=== PATIENT | female | born 1955 | race Caucasian/White ===

== ENCOUNTER 2024-08-02 07:15 | Day surgery (SDC) | payer MEDICARE ==
[~2024-08-02] VITALS: Ht 152.4 cm; Wt 64.4 kg
[~2024-08-02 07:15] MED LIST: B12 FAST DIS5000 MCG; CALCIUM PO; COQ10200 MG PO; COZAAR100 MG PO; FAMOTIDINE20 M1 PO; IBUPROFEN200 MG PO; LIPITOR20 M1 PO; VITAMIN D31000 UNI1 PO; [UNRECOGNIZED DRUG - OTHER] PO
[2024-08-02] MEDS ORDERED: FAMOTIDINE 10MG/ML 2ML SDV IV ONE (07:17)
[2024-08-02] MEDS ORDERED: LACTATED RINGER'S 1,000 ML IV ONE (07:18)
[2024-08-02 09:45] VITALS: BP 142/81
[2024-08-02] MEDS ORDERED: GLYCOPYRROLATE 0.2 MG/ML IV ONE (11:04)
[2024-08-02] MEDS ORDERED: PROPOFOL 200 MG/20 ML VIAL IV ONE (11:04)
[2024-08-02] MEDS ORDERED: LIDOCAINE HCL 2% 2ML SDV IV ONE (11:04)
== END 2024-08-02 10:00 | disposition home or self-care (01) ==
LOC: ENDO 07:15 → ORM 09:00 → ENDO 09:05 → ORM 09:10 → ENDO 09:30
PROVIDERS: ATTEND Surgery
PROC: 0DBM8ZX Excision of Descending Colon, Via Natural or Artificial Opening Endoscopic, Diagnostic (ICD-10-PCS; principal; 2024-08-02)
DX: Z12.11 Encounter for screening for malignant neoplasm of colon (principal); D12.4 Benign neoplasm of descending colon; K63.5 Polyp of colon; K57.30 Diverticulosis of large intestine without perforation or abscess without bleeding; K64.8 Other hemorrhoids; I10 Essential (primary) hypertension; J44.9 Chronic obstructive pulmonary disease, unspecified; E78.5 Hyperlipidemia, unspecified; Q44.6 Cystic disease of liver; F17.200 Nicotine dependence, unspecified, uncomplicated
CPT/HCPCS: J1596